=== PATIENT | male | born 1980 | race Caucasian/White ===

== ENCOUNTER 2021-11-02 21:51 | Inpatient (IN) ==
[2021-11-02] MEDS ORDERED: SODIUM CHLORIDE 0.9% 1000ML 1,000 ML IV STA (21:59)
[2021-11-02] MEDS ORDERED: SODIUM CHLORIDE 0.9% 1000ML 1,000 ML IV ONE (22:08)
--- NOTE | 2021-11-02 22:08 | Emergency Department Note ---
Impression & Plan Stroke-like symptoms ADMIT ED Provider Note HPI: The patient is a 41-year-old male who presents to the emergency department with a chief complaint of acute onset dizziness, states he had a ringing sensation in both of his ears bilaterally when he was drinking this evening at a local bar. Patient also states that for the past week he has had left-sided whole side num bness in the left upper extremity and left lower extremity, patient states he is also had some visual deficit in his left field of vision during this entire past week. On arrival to the ED the patient is very nauseous, he has had multiple episodes of vomiting. Denies any abdominal pain. He does display some ataxia in the left upper extremity on exam, he has symmetrical facial movements, he does not exhibit any focal motor deficits, he is hemodynamically stable on arrival. He states he had 2 beers prior to arrival. ROS: -Neuro: Left-sided numbness x1 week, left-sided visual deficit, acute onset dizziness *10 point review systems was conducted and is otherwise negative unless stated above *Outpatient medications and allergy history reviewed PE: General: Alert, NAD HEENT: Normocephalic, atraumatic Eyes: Extraocular eye movement is intact, no scleral erythema Pulmonary: Clear to auscultation bilaterally, no wheezing Cardio: Regular rate and rhythm GI: Abdomen is soft, nontender : No suprapubic tenderness MSK: No evidence of trauma or malformation of the extremities, no edema Skin: No evidence of rash Neuro: Alert, symmetrical facial movements are appreciated, equal bilateral anesthesiologist attending strength, ataxia on the left side with [id number] testing Psychiatric: Cooperative hall monitor: - An order was placed for continuous cardiac monitoring - Patient was noted to be in sinus rhythm with rate of 90 EKG: Rate: 87 Rhythm: Normal sinus rhythm Intervals: Within normal limits ST changes: No ST elevation Time: 2156 NIH STROKE SCALE: 1A: Level of consciousness Alert; keenly responsive 0 1B: Ask month and age Both questions right 0 1C: 'Blink eyes' & 'squeeze hands' Performs both tasks 0 2: Horizontal extraocular movements Normal 0 3: Visual zapien Partial hemianopia +1 4: Facial palsy Normal symmetry 0 5A: Left arm motor drift No drift for 10 seconds 0 5B: Right arm motor drift No drift for 10 seconds 0 6A: Left leg motor drift No drift for 5 seconds 0 6B: Right leg motor drift No drift for 5 seconds 0 7: Limb Ataxia Ataxia in 1 Limb +1 8: Sensation Mild-moderate loss: less sharp/more dull +1 9: Language/aphasia Normal; no aphasia 0 10: Dysarthria Normal 0 11: Extinction/inattention No abnormality 0 TOTAL NIH SCORE = 3 Medical Decision Making: Patient presented to the emergency department with a chief complaint of acute onset vertiginous symptoms, this is in the setting of pre-existing symptoms concerning for CVA including left-sided numbness and left-sided visual deficits for the past week. On arrival here to the ED the patient has had some nausea and vomiting, he is otherwise hemodynamically stable and alert. He does not show any focal motor deficits on exam. NIH stroke scale is calculated at 3 for ataxia, visual deficit, and sensory deficit on arrival. CT imaging of the head as well as CT angiography of the head and neck are unremarkable for stroke or large vessel occlusion. Patient was given Zofran and meclizine here in the ED as well as IV fluids. His lab work is suggestive of a metabolic acidosis in the setting of recent alcohol use, alcohol level is 52. Patient does admit to having several beers earlier today. According to bedside RN, they did attempt to ambulate the patient to the restroom and he was having severe difficulty with his balance. I do have concern that with his alcohol level not being markedly elevated in the setting of pre-existing neurologic symptoms he may have a posterior circulation stroke. His main risk factor is 1 pack/day smoking x25 years. He was ordered an aspirin in the ED, I discussed the above findings with the on-call hospitalist, Dr. Mercedes marshall, and the patient was accepted to a telemetry bed for MRI imaging later this morning and further management. Patient was in agreement to the above plan he was admitted in stable condition. Diagnosis: 1. Acute onset vertigo 2. Nausea and vomiting 3. Left-sided numbness of the upper extremity and lower extremity 4. Left-sided visual deficit 5. Stroke like symptoms Disposition: Admission Andrea Del Valle DO Emergency Medicine Past Med/Surg History Social History Smoking Status: Current every day smoker Tobacco Type: Cigarettes Preferred Language: Tongan Feels Safe at Home: Yes Allergies Allergies Allergy/AdvReac Type Severity Reaction Status Date / Time No Known Allergies Allergy Unverified 11/03/21 00:40 Home Meds Home Medications Medication Instructions Recorded Confirmed ibuprofen 200 mg tablet 400 mg PO Q6H PRN 11/03/21 11/03/21 Results & Data (ED) Vital Signs Vital Signs - 24 hr 11/02/21 21:56 11/02/21 21:57 11/02/21 23:30 Temperature 37 C Temperature Source Oral Pulse Rate 94 H 87 94 H Pulse Rate from SpO2 Sensor 88 92 H Pulse Rhythm Regular Pulse Strength Normal Respiratory Rate 24 29 H 19 Respiratory Effort / Characteristics Non-Labored Spontaneous Respiratory Depth Normal Respiratory Pattern Regular Blood Pressure 150/98 H 141/99 H Blood Pressure Mean 115 113 Blood Pressure Position Sitting Pulse Oximetry 98 97 Oxygen Delivery Method Room Air Sepsis Recent Fever Within 48 Hours No Sepsis New/Unexplained Change in Mental Status N/A Sepsis Action Taken by Nursing No Action Required Laboratory Data Result diagrams: 11/02/21 22:15 11/02/21 22:15 Lab Results 11/02/21 11/02/21 11/02/21 Range/Units 22:15 22:15 22:15 WBC 14.49 H (4.8-10.8) K/uL RBC 5.15 (4.7-6.1) M/uL Hgb 17.6 (14.0-18.0) g/dL Hct 48.6 (42-52) % MCV 94.4 (80-100) fL MCH 34.2 H (25-34) pg MCHC 36.2 H (32-36) g/dL RDW Std Deviation 43.7 (36.4-46.3) fL RDW Coeff of [place] 12.6 (11.5-14.5) % Plt Count 315 (130-400) K/uL MPV 9.5 (7.4-10.4) fL Immature Gran % (Auto) 0.4 % Neut % (Auto) 68.1 % Lymph % (Auto) 21.9 % [place] % (Auto) 8.6 % Eos % (Auto) 0.6 % Baso % (Auto) 0.4 % Neut # (Auto) 9.88 H (1.4-6.5) K/uL Lymph # (Auto) 3.17 (1.2-3.4) K/uL [place] # (Auto) 1.24 H (0.11-0.59) K/uL Eos # (Auto) 0.08 (0-0.5) K/uL Baso # (Auto) 0.06 (0-0.2) K/uL Immature Gran # (Auto) 0.06 H (0.00-0.02) K/uL Sodium 133 L (136-145) mmol/L Potassium 3.1 L (3.5-5.1) mmol/L Chloride 101 (98-107) mmol/L Carbon Dioxide 19 L (21-32) mmol/L Anion Gap 13 H (3-11) BUN 5 L (6-23) mg/dl Creatinine 0.78 (0.6-1.4) mg/dl Est Cr Clr Drug Dosing 141.7 ml/min Est GFR ( Amer) 128.1 ml/min Est GFR (Non-Af Amer) 110.6 ml/min BUN/Creatinine Ratio 6.4 L (10-20) Glucose 122 H (70-99(Fasting)) mg/dl Calcium 8.4 L (8.5-10.1) mg/dl Total Bilirubin 1.0 (0.2-1.0) mg/dl AST 16 (13-39) U/L ALT 19 (7-52) U/L Alkaline Phosphatase 53 (34-104) U/L Troponin I < 0.03 (0-0.04) ng/ml Total Protein 6.6 (6.0-8.3) gm/dl Albumin 4.0 (3.4-5.0) gm/dl Globulin 2.6 (2.5-4.0) gm/dl Albumin/Globulin Ratio 1.5 (0.9-2) Lipase 110 H (11-82) U/L Ethyl Alcohol mg/dL 52.1 H (<10.0) mg/dl Administered Medications Discontinued Medications Sodium Chloride (Nss 1000ml) 1,000 mls @ 999 mls/hr IV .Q1H1M STA Stop: 11/02/21 22:59 Last Infusion: 11/02/21 23:45 Dose: 0 mls/hr Documented by: [id number] Admin: 11/02/21 22:21 Dose: 999 mls/hr Documented by: [id number] Sodium Chloride (Nss 1000ml) 1,000 mls @ 999 mls/hr IV .Q1H1M ONE Stop: 11/02/21 23:08 Last Infusion: 11/02/21 23:45 Dose: 0 mls/hr Documented by: [id number] Admin: 11/02/21 22:20 Dose: 999 mls/hr Documented by: [id number] Ioversol (Optiray 320 125ml) 118 ml IV ONCE ONE Stop: 11/02/21 23:43 Last Admin: 11/02/21 23:42 Dose: 118 ml Documented by: [id number] Meclizine HCl (Meclizine Hcl 25 Mg Tab) 25 mg PO NOW STA Stop: 11/03/21 00:11 Last Admin: 11/03/21 00:54 Dose: 25 mg Documented by: [id number] Ondansetron HCl (Ondansetron Inj 2 Mg/Ml 2 Ml Vial) Confirm Administered Dose 4 mg .ROUTE .STK-MED ONE Stop: 11/02/21 22:19 Last Admin: 11/02/21 22:20 Dose: 4 mg Documented by: [id number] Ondansetron HCl (Ondansetron Inj 2 Mg/Ml 2 Ml Vial) 4 mg IV NOW STA Stop: 11/02/21 22:32 Last Admin: 11/02/21 22:32 Dose: Not Given Documented by: [id number] Potassium Chloride (Potassium Chloride Pwd 20 Meq Pack) 20 meq PO NOW STA Stop: 11/03/21 00:12 Last Admin: 11/03/21 00:54 Dose: 20 meq Documented by: [id number] Imaging Data Radiologist's Impression: Chest X-Ray 11/02/21 21:59 XR chest 1V portable HISTORY: Atypical Chest Pain COMPARISON: Chest 12/05/2013. FINDINGS: The lungs are clear. Cardiac silhouette is normal in size. No pleural effusions. No pneumothorax. IMPRESSION: No acute process. ACT 112: Negative or not required by law. Electronically signed by: William Montana M.D. 11/02/2021 10:[address] 11/02/21 21:59 CT head/brain wo con CLINICAL HISTORY: Dizzy . Left facial and arm numbness for one week COMPARISON STUDY: No previous studies for comparison. CT DOSE: TECHNIQUE: Standard CT of the Brain was performed without IV contrast. A dose lowering technique was utilized adhering to the principles of ALARA. FINDINGS: Extraaxial space: There is no evidence for subdural hematoma. There are no extra-axial fluid collections. Ventricles and cisterns: The ventricles are normal in size and configuration. There is no evidence for midline shift or mass effect. Parenchyma: There is no subarachnoid or intraparenchymal hemorrhage. There is no evidence for an acute infarct or cerebral edema. There is homogeneous attenuation of the brain parenchyma. There are no gross mass lesions. Osseous structures: There is no evidence for an acute fracture. The visualized paranasal sinuses are clear. The mastoid air cells are clear bilaterally. Soft tissues: There is no evidence for focal soft tissue swelling. IMPRESSION: No acute intracerebral pathology. ACT 112: Negative or not required by law. Electronically signed by: Thanh Gloria M.D. 11/02/2021 11:51 PM Head CTA 11/02/21 22:03 CT angio head w con CLINICAL HISTORY: L sided numbness x 1 week, L sided visual change COMPARISON STUDY: Noncontrast CT from 11/02/2021 CT DOSE: TECHNIQUE: CT Angio of the brain was performed.followed by image post processing with coronal, and sagittal MIP reformats. Contrast Volume: Optiray 320, 118 ml FINDINGS: Vascular findings: There is normal enhancement within the internal carotid arteries bilaterally. There is normal enhancement noted within the anterior, middle and posterior cerebral arteries. Nonvascular findings: There is homogeneous attenuation of the brain parenchyma bilaterally. There is no evidence for an acute infarct or cerebral edema. IMPRESSION: Negative CT angiogram of the brain with contrast. ACT 112: Negative or not required by law. Electronically signed by: Thanh Gloria M.D. 11/02/2021 11:59 PM Neck CTA 11/02/21 22:03 CT angio neck with con CLINICAL HISTORY: L sided weakness, L sided visual change COMPARISON STUDY: No previous studies for comparison. CT DOSE: 1008.25 mGy.cm TECHNIQUE: CT Angio of the neck was performed.followed by image post processing with coronal, and sagittal MIP reformats.. Stenosis assessment by NASCET criteria. Contrast Volume: Optiray 320, 118 ml FINDINGS: Vascular findings: Right common carotid artery: Patent without significant stenosis. Right internal carotid artery: Patent without significant stenosis. Right vertebral artery: Patent without significant stenosis. The right vertebral artery is dominant when compared to the left. Left common carotid artery: Patent without significant stenosis. Left internal carotid artery: Patent without significant stenosis. Left vertebral artery: Patent without significant stenosis. Nonvascular findings: The parotid and submandibular salivary glands appear normal. There is no enlarged cervical adenopathy noted. The airway appears patent. The thyroid gland appears within normal limits. The lung apices appear within normal limits. Impression: Negative CT angiogram of the neck with contrast. ACT 112: Negative or not required by law. Electronically signed by: Thanh Gloria M.D. 11/03/2021 12:14 AM Discharge Plan Visit Data Chief Complaint: Vertigo Stated Complaint: DIZZY ED Provider: Andrea Del Valle Discharge Problem: Stroke-like symptoms Forms Stand Alone Forms: [facility] [employer] Prescriptions Prescriptions: No Action ibuprofen 200 mg Tablet 400 mg PO Q6H PRN (Reason: Pain) RF: 0 Referrals Referrals: PCP,NO [Primary Care Provider] -
[2021-11-02] MEDS ORDERED: ONDANSETRON INJ 2 MG/ML 2 ML VIAL ONE (22:18)
[2021-11-02 22:24] LABS: Basophils # (auto) 0.06 K/uL (0-0.2); Basophils % (auto) 0.4 %; Eosinophils # (auto) 0.08 K/uL (0-0.5); Eosinophils % (auto) 0.6 %; Hematocrit (blood only) 48.6 % (42-52); Hemoglobin 17.6 g/dL (14.0-18.0); Immature Granulocytes # (auto) 0.06 K/uL (0.00-0.02); Immature Granulocytes % (auto) 0.4 %; Lymphocytes # (auto) 3.17 K/uL (1.2-3.4); Lymphocytes % (auto) 21.9 %; Mean Corpuscular Hemoglobin 34.2 pg (25-34); Mean Corpuscular Hgb Conc 36.2 g/dL (32-36); Mean Corpuscular Volume 94.4 fL (80-100); Mean Platelet Volume 9.5 fL (7.4-10.4); Monocytes # (auto) 1.24 K/uL (0.11-0.59); Monocytes % (auto) 8.6 %; Neutrophils # (auto) 9.88 K/uL (1.4-6.5); Neutrophils % (auto) 68.1 %; Platelet Count 315 K/uL (130-400); RDW Coefficient of Variation 12.6 % (11.5-14.5); RDW Standard Deviation 43.7 fL (36.4-46.3); Red Blood Count 5.15 M/uL (4.7-6.1); White Blood Count 14.49 K/uL (4.8-10.8)
[2021-11-02] MEDS ORDERED: ONDANSETRON INJ 2 MG/ML 2 ML VIAL IV STA (22:31)
--- NOTE | 2021-11-02 22:43 | XRay Report ---
XR chest 1V portable HISTORY: Atypical Chest Pain COMPARISON: Chest 12/05/2013. FINDINGS: The lungs are clear. Cardiac silhouette is normal in size. No pleural effusions. No pneumot horax. IMPRESSION: No acute process. ACT 112: Negative or not required by law. Electronically signed by: William Montana M.D. 11/02/2021 10:42 PM
[2021-11-02 22:50] LABS: Alanine Aminotransferase 19 U/L (7-52); Albumin Globulin Ratio 1.5 (0.9-2); Alkaline Phosphatase 53 U/L (34-104); Anion Gap 13 (3-11); Aspartate Aminotransferase 16 U/L (13-39); BUN Creatinine Ratio 6.4 (10-20); Blood Urea Nitrogen 5 mg/dl (6-23); Calcium 8.4 mg/dl (8.5-10.1); Carbon Dioxide 19 mmol/L (21-32); Chloride 101 mmol/L (98-107); Creatinine Clr Calc Pharmacy 141.7 ml/min; Est GFR (African American) 128.1 ml/min; Est GFR (Non-African American) 110.6 ml/min; Globulin 2.6 gm/dl (2.5-4.0); Glucose 122 mg/dl (70-99(Fasting)); Lipase 110 U/L (11-82); Potassium 3.1 mmol/L (3.5-5.1); Sodium 133 mmol/L (136-145); Total Protein 6.6 gm/dl (6.0-8.3)
[2021-11-02 22:51] LABS: Troponin I < 0.03 ng/ml (0-0.04)
[2021-11-02] MEDS ORDERED: OPTIRAY 320 125ml IV ONE (23:42)
--- NOTE | 2021-11-02 23:52 | CT Scan Report ---
CT head/brain wo con CLINICAL HISTORY: Dizzy . Left facial and arm numbness for one week COMPARISON STUDY: No previous studies for comparison. CT DOSE: TECHNIQUE: Standard CT of the Brain was performed without IV contrast. A dose lowering technique was utilized adhering to the principles of ALARA. FINDINGS: Extraaxial space: There is no evidence for subdural hematoma. There are no extra-axial fluid collecti ons. Ventricles and cisterns: The ventricles are normal in size and configuration. There is no evidence f or midline shift or mass effect. Parenchyma: There is no subarachnoid or intraparenchymal hemorrhage. There is no evidence for an acu te infarct or cerebral edema. There is homogeneous attenuation of the brain parenchyma. There are no gross mass lesions. Osseous structures: There is no evidence for an acute fracture. The visualized paranasal sinuses are clear. The mastoid air cells are clear bilaterally. Soft tissues: There is no evidence for focal soft tissue swelling. IMPRESSION: No acute intracerebral pathology. ACT 112: Negative or not required by law. Electronically signed by: Thanh Gloria M.D. 11/02/2021 11:51 PM
--- NOTE | 2021-11-03 | CT Scan Report ---
CT angio head w con CLINICAL HISTORY: L sided numbness x 1 week, L sided visual change COMPARISON STUDY: Noncontrast CT from 11/02/2021 CT DOSE: TECHNIQUE: CT Angio of the brain was performed.followed by image post processing with coronal, and s agittal MIP reformats. Contrast Volume: Optiray 320, 118 ml FINDINGS: Vascular findings: There is normal enhancement within the internal carotid arteries bilaterally. The re is normal enhancement noted within the anterior, middle and posterior cerebral arteries. Nonvascular findings: There is homogeneous attenuation of the brain parenchyma bilaterally. There is no evidence for an acute infarct or cerebral edema. IMPRESSION: Negative CT angiogram of the brain with contrast. ACT 112: Negative or not required by law. Electronically signed by: Thanh Gloria M.D. 11/02/2021 11:59 PM
[2021-11-03] MEDS ORDERED: MECLIZINE HCL 25 MG TAB PO STA (00:10)
[2021-11-03] MEDS ORDERED: POTASSIUM CHLORIDE PWD 20 MEQ PACK PO STA (00:11)
--- NOTE | 2021-11-03 00:16 | CT Scan Report ---
CT angio neck with con CLINICAL HISTORY: L sided weakness, L sided visual change COMPARISON STUDY: No previous studies for comparison. CT DOSE: 1008.25 mGy.cm TECHNIQUE: CT Angio of the neck was performed.followed by image post processing with coronal, and sa gittal MIP reformats.. Stenosis assessment by NASCET criteria. Contrast Volume: Optiray 320, 118 ml FINDINGS: Vascular findings: Right common carotid artery: Patent without significant stenosis. Right internal carotid artery: Patent without significant stenosis. Right vertebral artery: Patent without significant stenosis. The right vertebral artery is dominant w hen compared to the left. Left common carotid artery: Patent without significant stenosis. Left internal carotid artery: Patent without significant stenosis. Left vertebral artery: Patent without significant stenosis. Nonvascular findings: The parotid and submandibular salivary glands appear normal. There is no enlarged cervical adenopathy noted. The airway appears patent. The thyroid gland appears within normal limits. The lung apices ap pear within normal limits. Impression: Negative CT angiogram of the neck with contrast. ACT 112: Negative or not required by law. Electronically signed by: Thanh Gloria M.D. 11/03/2021 12:14 AM
[2021-11-03] MEDS ORDERED: ASPIRIN CHEW 324 MG PO STA (00:55)
[2021-11-03] MEDS ORDERED: POTASSIUM CHLORIDE CRTAB 20 MEQ TABCR PO STA (01:44)
--- NOTE | 2021-11-03 01:47 | History & Physical Report ---
Date of Service November 03, 2021 Assessment & Plan (1) Stroke-like symptoms: Plan: 41yo male with history of ongoing tobacco use, absent from routine medical care, presents with stroke-like symptoms. Began appx 1 week ago with a posterior headache associated with left sided paresthesias and left lateral visual field deficit. Symptoms seem to have progressed this evening with development of tinnitus, vertigo and ataxia. Patient smokes 1ppd. No prior CVA. No know h/o arrhythmia Received ASA 324mg po in ER. Patient is out of the window for thrombolytics - symptoms x 1 week -Admit to medical with telemetry -Check HgbA1C and Lipid panel for CVA risk stratification -Check MRI Brain -Check 2D echo -PT/OT evaluation -Neurology consultation appreciated -Will initiate Atorvastatin 40mg po daily -Initiate ASA 81mg po daily -Encourage smoking cessation (2) History of Lyme disease: Plan: Patient reports history of a tick bite many years ago with development of several rashes. He states he completed a course of Doxycycline. -Noted Plan: F/E/N - Heplock, Check Mg, repletion of K with 60mEq and repeat chemistry in AM, Heart healthy diet as tolerated Daily EtOH use - reports 2-3 beers/day. No history of withdrawal symptoms. Will place AWSS orderset for at risk patient. Ppx -SCDs to bilateral LE Code - Full per discussion with patient Dispo - observation to medical with telemetry History of Present Illness Chief Complaint: dizziness Primary Care Provider: NO PCP Terrance Hunter is a 41yo male with history of tobacco use presenting with dizziness. One week ago patient developed a migraine headache in the right posterior portion of his head as well as left sided numbness of the arm and leg and deficit of the left lateral visual field. Patient's headache resolved but the numbness/tingling and visual field deficit persist. Today he went grocery shopping then went out to a social club to have some drinks. He had two beers when he developed acute tinnitus and dizziness. He set his beer down and rested for appx 15-20 minutes to see if the dizziness would resolve. When it didn't he tried to walk to the bathroom. He became nauseated and had difficulty with balance and coordination. He had several episodes of non-bloody/non-bilious vomiting. Upon arrival he is afebrile, mildly elevated BP at 141/99, saturating well on RA. NIHSS = 3 Patient still complaining of dizziness worsened with movement. Was walked to the bathroom in the ER with significant ataxia No additional complaints at this time. Patient denies fever, chills, cough, chest pain, SOB. Denies abdominal pain, diarrhea. He is not vaccinated against Covid-19 He smokes 1ppd and drinks 2-3 beers/day. Denies history of EtOH withdrawal symptoms. ER Course: NSS x 2L, Zofran, Meclizine Allergies Allergy/AdvReac Type Severity Reaction Status Date / Time No Known Allergies Allergy Unverified 11/03/21 00:40 Home Medications Medication Instructions Recorded Confirmed Type ibuprofen 200 mg tablet 400 mg PO Q6H PRN 11/03/21 11/03/21 History Past Med/Surg History Medical History (Updated 11/03/21 @ 01:33 by Arely Lombardo DO) Migraine Family History (Updated 11/03/21 @ 01:33 by Arely Lombardo DO) Other Cancer Coronary heart disease Social History Smoking Status: Current every day smoker Tobacco Type: Cigarettes Preferred Language: Icelandic Feels Safe at Home: Yes Review of Systems Review of Systems: All systems reviewed & are unremarkable except as noted in HPI & below Physical Exam Physical Exam: General: patient resting comfortably, NAD, non-toxic in appearance, AA&O x 4 Skin: warm, dry, intact, scattered lesions on forearm, no bleeding or evidence of secondary infection HEENT: NC/AT, PERRL, EOMI, anicteric sclera, conjunctiva without injection, external ear normal to inspection and nontender, nares patent, moist mucus membranes, edentulous, no oropharyngeal lesions, neck supple, trachea midline, no LAD, no thyromegaly, no JVD Heart: +S1/S2, regular, no m/r/g, no carotid bruit appreciated Lungs: equal air entry bilaterally, no rales/rhonchi/wheezes Abd: +BS, soft, NT/ND, no masses/organomegaly/ascites Ext: warm, 2+ pulses in UE/LE bilaterally, no clubbing/cyanosis or edema Neuro: AA&O x 4, speech clear, no facial droop. CN II - XII intact with left lateral visual field deficit appreciated on confrontation, sensation to light touch reportedly intact and equal, MS 5/5 in UE/LE bilaterally, some dysmetria noted on finger to nose with bilateral hands, gait as assessed by ER nursing reported to be ataxic with assistance required for ambulation Results & Data Results & Data ([facility]) Vital Signs (Past 12 Hours) Vital Signs Temp Pulse Resp BP Pulse Ox 11/03/21 01:00 98 H 18 141/99 H 96 11/03/21 00:30 90 18 95 11/03/21 00:00 95 H 17 96 11/02/21 23:30 94 H 19 141/99 H 97 11/02/21 21:57 37 C 87 29 H 150/98 H 98 11/02/21 21:56 94 H 24 Laboratory Results Laboratory Results WBC 14.49 K/uL (4.8-10.8) H 11/02/21 22:15 RBC 5.15 M/uL (4.7-6.1) 11/02/21 22:15 Hgb 17.6 g/dL (14.0-18.0) 11/02/21 22:15 Hct 48.6 % (42-52) 11/02/21 22:15 MCV 94.4 fL (80-100) 11/02/21 22:15 MCH 34.2 pg (25-34) H 11/02/21 22:15 MCHC 36.2 g/dL (32-36) H 11/02/21 22:15 RDW Std Deviation 43.7 fL (36.4-46.3) 11/02/21 22:15 RDW Coeff of Flora 12.6 % (11.5-14.5) 11/02/21 22:15 Plt Count 315 K/uL (130-400) 11/02/21 22:15 MPV 9.5 fL (7.4-10.4) 11/02/21 22:15 Immature Gran % (Auto) 0.4 % 11/02/21 22:15 Neut % (Auto) 68.1 % 11/02/21 22:15 Lymph % (Auto) 21.9 % 11/02/21 22:15 Mower % (Auto) 8.6 % 11/02/21 22:15 Eos % (Auto) 0.6 % 11/02/21 22:15 Baso % (Auto) 0.4 % 11/02/21 22:15 Neut # (Auto) 9.88 K/uL (1.4-6.5) H 11/02/21 22:15 Lymph # (Auto) 3.17 K/uL (1.2-3.4) 11/02/21 22:15 Mower # (Auto) 1.24 K/uL (0.11-0.59) H 11/02/21 22:15 Eos # (Auto) 0.08 K/uL (0-0.5) 11/02/21 22:15 Baso # (Auto) 0.06 K/uL (0-0.2) 11/02/21 22:15 Immature Gran # (Auto) 0.06 K/uL (0.00-0.02) H 11/02/21 22:15 Sodium 133 mmol/L (136-145) L 11/02/21 22:15 Potassium 3.1 mmol/L (3.5-5.1) L 11/02/21 22:15 Chloride 101 mmol/L (98-107) 11/02/21 22:15 Carbon Dioxide 19 mmol/L (21-32) L 11/02/21 22:15 Anion Gap 13 (3-11) H 11/02/21 22:15 BUN 5 mg/dl (6-23) L 11/02/21 22:15 Creatinine 0.78 mg/dl (0.6-1.4) 11/02/21 22:15 Est Cr Clr Drug Dosing 141.7 ml/min 11/02/21 22:15 Est GFR ( Amer) 128.1 ml/min 11/02/21 22:15 Est GFR (Non-Af Amer) 110.6 ml/min 11/02/21 22:15 BUN/Creatinine Ratio 6.4 (10-20) L 11/02/21 22:15 Glucose 122 mg/dl (70-99(Fasting)) H 11/02/21 22:15 Calcium 8.4 mg/dl (8.5-10.1) L 11/02/21 22:15 Total Bilirubin 1.0 mg/dl (0.2-1.0) 11/02/21 22:15 AST 16 U/L (13-39) 11/02/21 22:15 ALT 19 U/L (7-52) 11/02/21 22:15 Alkaline Phosphatase 53 U/L (34-104) 11/02/21 22:15 Troponin I < 0.03 ng/ml (0-0.04) 11/02/21 22:15 Total Protein 6.6 gm/dl (6.0-8.3) 11/02/21 22:15 Albumin 4.0 gm/dl (3.4-5.0) 11/02/21 22:15 Globulin 2.6 gm/dl (2.5-4.0) 11/02/21 22:15 Albumin/Globulin Ratio 1.5 (0.9-2) 11/02/21 22:15 Lipase 110 U/L (11-82) H 11/02/21 22:15 Ethyl Alcohol mg/dL 52.1 mg/dl (<10.0) H 11/02/21 22:15 SARS-CoV-2, RNA, NAAT NEGATIVE (NEGATIVE) 11/03/21 01:02 Impressions Chest X-Ray 11/02/21 21:59 XR chest 1V portable HISTORY: Atypical Chest Pain COMPARISON: Chest 12/05/2013. FINDINGS: The lungs are clear. Cardiac silhouette is normal in size. No pleural effusions. No pneumothorax. IMPRESSION: No acute process. ACT 112: Negative or not required by law. Electronically signed by: William Montana M.D. 11/02/2021 10:[address] 11/02/21 21:59 CT head/brain wo con CLINICAL HISTORY: Dizzy . Left facial and arm numbness for one week COMPARISON STUDY: No previous studies for comparison. CT DOSE: TECHNIQUE: Standard CT of the Brain was performed without IV contrast. A dose lowering technique was utilized adhering to the principles of ALARA. FINDINGS: Extraaxial space: There is no evidence for subdural hematoma. There are no extra-axial fluid collections. Ventricles and cisterns: The ventricles are normal in size and configuration. There is no evidence for midline shift or mass effect. Parenchyma: There is no subarachnoid or intraparenchymal hemorrhage. There is no evidence for an acute infarct or cerebral edema. There is homogeneous attenuation of the brain parenchyma. There are no gross mass lesions. Osseous structures: There is no evidence for an acute fracture. The visualized paranasal sinuses are clear. The mastoid air cells are clear bilaterally. Soft tissues: There is no evidence for focal soft tissue swelling. IMPRESSION: No acute intracerebral pathology. ACT 112: Negative or not required by law. Electronically signed by: Thanh Gloria M.D. 11/02/2021 11:51 PM Head CTA 11/02/21 22:03 CT angio head w con CLINICAL HISTORY: L sided numbness x 1 week, L sided visual change COMPARISON STUDY: Noncontrast CT from 11/02/2021 CT DOSE: TECHNIQUE: CT Angio of the brain was performed.followed by image post processing with coronal, and sagittal MIP reformats. Contrast Volume: Optiray 320, 118 ml FINDINGS: Vascular findings: There is normal enhancement within the internal carotid arteries bilaterally. There is normal enhancement noted within the anterior, middle and posterior cerebral arteries. Nonvascular findings: There is homogeneous attenuation of the brain parenchyma bilaterally. There is no evidence for an acute infarct or cerebral edema. IMPRESSION: Negative CT angiogram of the brain with contrast. ACT 112: Negative or not required by law. Electronically signed by: Thanh Gloria M.D. 11/02/2021 11:59 PM Neck CTA 11/02/21 22:03 CT angio neck with con CLINICAL HISTORY: L sided weakness, L sided visual change COMPARISON STUDY: No previous studies for comparison. CT DOSE: 1008.25 mGy.cm TECHNIQUE: CT Angio of the neck was performed.followed by image post processing with coronal, and sagittal MIP reformats.. Stenosis assessment by NASCET criteria. Contrast Volume: Optiray 320, 118 ml FINDINGS: Vascular findings: Right common carotid artery: Patent without significant stenosis. Right internal carotid artery: Patent without significant stenosis. Right vertebral artery: Patent without significant stenosis. The right vertebral artery is dominant when compared to the left. Left common carotid artery: Patent without significant stenosis. Left internal carotid artery: Patent without significant stenosis. Left vertebral artery: Patent without significant stenosis. Nonvascular findings: The parotid and submandibular salivary glands appear normal. There is no enlarged cervical adenopathy noted. The airway appears patent. The thyroid gland appears within normal limits. The lung apices appear within normal limits. Impression: Negative CT angiogram of the neck with contrast. ACT 112: Negative or not required by law. Electronically signed by: Thanh Gloria M.D. 11/03/2021 12:14 AM ECG Additional Comments: EKG with NSR at 87, normal axis, HR=444, QRS=88, TOt=163 Code Status & VTE Plan VTE Prophylaxis Plan VTE Prophylaxis will be ordered: Yes PG Care Time/CCT Total # of Minutes Spent Total Time Spent with Patient: Total time spent is greater than 50% in coordination of care (as documented) at patient's floor/unit and/or counseling patient: Coding Level of Care Code INT OBSERVATION CARE 50M LVL 2 Diagnoses Stroke-like symptoms R29.90 History of Lyme disease Z86.19
[2021-11-03] MEDS ORDERED: ACETAMINOPHEN 325 MG TAB PO PRN (06:38)
[2021-11-03] MEDS ORDERED: ONDANSETRON INJ 2 MG/ML 2 ML VIAL IV PRN (06:38)
[2021-11-03] MEDS ORDERED: MECLIZINE HCL 25 MG TAB PO PRN (06:38)
[2021-11-03] MEDS ORDERED: LORazepam 1 MG TAB PO PRN (06:38)
[2021-11-03] MEDS: ASPIRIN 81 MG ECTAB PO SCH (09:53)
[2021-11-03] MEDS: ATORVASTATIN 40 MG TAB PO SCH (09:53)
[2021-11-03] MEDS ORDERED: GADOBUTROL 10ML VIAL IV ONE (11:21)
--- NOTE | 2021-11-03 12:24 | Magnetic Resonance Report ---
MR brain wo/w con CLINICAL HISTORY: concern for posterior CVA TECHNIQUE: Multiplanar and multisequence MR images of the brain were obtained prior to and following administration of gadolinium contrast. Comparison: None available at the time of this dictation. FINDINGS: Multiple foci of restricted diffusion are seen in the right occipital and temporal lobes. Foci of res tricted diffusion are also seen in the right cerebellum. There is associated edema and contrast enhan cement. Enhancement is also seen in a tiny region of the left occipital lobe.. Foci of T2 and FLAIR h yperintensity are noted in the paraventricular areas consistent with chronic small vessel ischemic di sease. The ventricular system is normal in appearance. There is no evidence of acute intraparenchymal hemorrhage. No extra axial fluid collections are seen. There are no masses, mass effect, or midline shift. No abnormal enhancement is seen. The corpus callosum, pituitary gland, and cerebellar tonsils appear grossly unremarkable. Flow voids of the major intracranial arterial vessels are identified. The imaged portions of the para nasal sinuses, mastoid air cells, and orbits are unremarkable. IMPRESSION: Restricted diffusion, edema, and enhancement are seen in the right occipital lobe and cerebellum comp atible with infarcts in the right posterior cerebral artery and AICA. There may also be a tiny infarc t in the left occipital lobe. This may represent multivessel infarct or more likely posterior circula tion emboli. ACT 112: Negative or not required by law. Electronically signed by: Hola Alexander M.D. 11/03/2021 12:22 PM
--- NOTE | 2021-11-03 12:45 | Hospitalist Progress Note ---
Date of Service November 03, 2021 Assessment & Plan (1) Stroke-like symptoms: Plan: 41yo male with history of ongoing tobacco use, absent from routine medical care, presents with stroke-like symptoms. Began appx 1 week ago with a posterior headache associated with left sided paresthesias and left lateral visual field deficit. Symptoms seem to have progressed this evening with development of tinnitus, vertigo and ataxia. Patient smokes 1ppd. No prior CVA. No know h/o arrhythmia Acute CVA Restricted diffusion, edema, and enhancement are seen in the right occipital lobe and cerebellum compatible with infarcts in the right posterior cerebral artery and AICA. There may also be a tiny infarct in the left occipital lobe. This may represent multivessel infarct or more likely posterior circulation emboli. Patient did not receive TPA, out of window for thrombolytics as had some symptoms for up to a week Received aspirin full dose in ER Continued on low-dose aspirin, atorvastatin No history of A. fib, no irregular rhythm appreciated on monitor. Remains on telemetry. EKG NSR. ?outpt holter monitor TTE pending PT/OT pending Neuro consult pending Repeat CT in 24 hours, continue permissive hypertension at this time non-TPA goal blood pressure less than 220/110 then gradually decrease Discussed tobacco cessation, patient agreeable to this and expresses understanding of its effect on his stroke risk A1c, fasting lipid panel remains pending - CTA head/neck: naf (2) History of Lyme disease: Plan: Patient reports history of a tick bite many years ago with development of several rashes. He states he completed a course of Doxycycline. -Noted (3) Tobacco abuse: Plan: 1 to 1.5 pack/day use Discussed impact on stroke risk, patient expresses understanding of this Agreeable to quit, defers an NRT at this Should have close outpatient follow-up for this, patient does not have insurance at this time (4) Alcohol abuse: Plan: Reports 2-3, sometimes 4 beers per day. To sequential alcohol free days as early as last week, no history of tremors/withdrawal/DT At risk protocol Replete thiamine/folic acid ? If this could contribute to underlying atrial irritability/A. fib, although this is not been seen on monitor here Plan: F/E/N -Heart healthy diet as tolerated. Daily EtOH use - reports 2-3 beers/day. No history of withdrawal symptoms. At risk AWSS orderset, defer active protocol at this time. Will replete thiamine/folic acid Ppx -SCDs to bilateral LE Code - Full per discussion with patient Dispo -medical with telemetry Admission and Anticipated Discharge Date Admission Date: November 03, 2021 Rizwan Carlos is seen at the bedside. He reports he continues to feel about the same as yesterday. He has persistent jcki-iud-madeeny-like feeling in his left face, left arm, and left leg which does not affect his sensation to soft touch. No abnormalities of right side. He continues to have a left-sided hemianopsia. Pupils are equally reactive to light and accommodation. MRI shows restricted di ffusion and edema within the right occipital lobe, cerebellum compatible with infarcts in the right posterior cerebral artery and AICA,? Left occipital infarct.? Posterior circulation emboli versus multivessel infarct. Patient does not have a history of A. fib, denies any history of palpitations, irregular pulse. Does drink alcohol regularly, 4-5 drinks a night although has gone 23 nights without alcohol as early as last week and has never experienced tremors or withdrawal symptoms. Continued dizziness, somewhat improved. Migraine complete resolved just prior to onset of new sx. Review of Systems Review of Systems: All systems reviewed & are unremarkable except as noted in Subjective Physical Exam Physical Exam: General: A&Ox3. NAD. Cooperative. HEENT: Atraumatic, normocephalic. Left hemianopsia. Pulm: CTAB A&P. -wheezes, -rales, -rhonchi. Symmetrical chest rise. No increased work of breathing. No respiratory distress. Cardiac: RRR, -mrg. Radial pulses intact and symmetrical. Abdominal: Nontender, nondistended, soft. BS present. CRANIAL NERVES: II: Pupils equal and reactive, no relative afferent pupillary defect, no VF cuts III, IV, : EOM intact, tracking stops about 20 degrees left of midline otherwise no gaze preference or deviation, no nystagmus. V: normal sensation to soft touch in V1, V2, and V3 segments bilaterally, although patient does endorse ijwu-hou-trlosan feeling in left face, upper and l ower extremities VII: no asymmetry, no nasolabial fold flattening VIII: normal hearing to speech IX, X: normal palatal elevation, no uvular deviation XI: 5/5 head turn and 5/5 shoulder shrug bilaterally XII: midline tongue protrusion MOTOR: RUE: 5/5 Shoulder internal rotation, external rotation, flexion, extension, abduction, adduction 5/5 Elbow flexion/extension, wrist flexion/extension 5/5 sand mill grinder strength, finger flexion/extension, interosseus LUE: 5/5 Shoulder internal rotation, external rotation, flexion, extension, abduction, adduction 5/5 Elbow flexion/extension, wrist flexion/extension 5/5 sand mill grinder strength, finger flexion/extension, interosseus RLE: 5/5 to hip flexion/extension, knee flexion/extension, ankle dorsiflexion/plantarflexion LLE: 5/5 to hip flexion/extension, knee flexion/extension, ankle dorsiflexion/plantarflexion SENSORY: Intact in upper and lower extremities to soft touch without deficit, although superimposed tingling feeling in left upper and left lower extremity which does not diminishes ability to feel soft touch or temperature. COORD: Normal finger to nose and heel to post, no tremor, trace dysmetria Results & Data Results & Data ([facility]) Vital Signs (Past 12 Hours) Vital Signs Pulse Pulse Resp BP BP BP Pulse Ox 11/03/21 09:56 93 H 20 157/103 H 97 11/03/21 09:55 96 H 20 157/103 H 97 11/03/21 06:39 18 146/100 H 96 11/03/21 05:00 91 H 17 123/100 97 11/03/21 04:30 96 H 18 119/95 95 11/03/21 04:22 100 H 18 135/99 96 11/03/21 04:21 101 H 17 134/103 H 97 11/03/21 04:20 103 H 23 143/107 H 95 11/03/21 04:00 95 H 25 H 95 11/03/21 03:30 101 H 13 96 11/03/21 03:00 100 H 17 97 11/03/21 02:30 96 H 24 95 11/03/21 02:00 94 H 21 136/95 94 11/03/21 01:30 90 22 95 11/03/21 01:00 98 H 18 141/99 H 96 PG Care Time/CCT Total # of Minutes Spent Total Time Spent with Patient: Total time spent is greater than 50% in coordination of care (as documented) at patient's floor/unit and/or counseling patient: Coding Level of Care Code 18000 Subseq Hosp Care Lvl 3 Diagnoses Stroke-like symptoms R29.90 History of Lyme disease Z86.19 Tobacco abuse Z72.0 Alcohol abuse F10.10
--- NOTE | 2021-11-03 13:05 | XCELERA ---
[id number]
[2021-11-04] MEDS: ASPIRIN 81 MG ECTAB PO SCH (07:53)
[2021-11-04] MEDS: THIAMINE HCL 100 MG in SYRINGE 9 ML IV SCH (07:53)
[2021-11-04] MEDS: ATORVASTATIN 40 MG TAB PO SCH (07:54)
[2021-11-04] MEDS: FOLIC ACID 1 MG TAB PO SCH (07:54)
[2021-11-04 08:15] LABS: Basophils # (auto) 0.03 K/uL (0-0.2); Basophils % (auto) 0.4 %; Eosinophils # (auto) 0.08 K/uL (0-0.5); Hematocrit (blood only) 52.4 % (42-52); Hemoglobin 17.9 g/dL (14.0-18.0); Immature Granulocytes # (auto) 0.02 K/uL (0.00-0.02); Immature Granulocytes % (auto) 0.2 %; Lymphocytes # (auto) 2.93 K/uL (1.2-3.4); Lymphocytes % (auto) 35.6 %; Mean Corpuscular Hemoglobin 32.7 pg (25-34); Mean Corpuscular Hgb Conc 34.2 g/dL (32-36); Mean Corpuscular Volume 95.8 fL (80-100); Mean Platelet Volume 9.7 fL (7.4-10.4); Monocytes # (auto) 0.97 K/uL (0.11-0.59); Monocytes % (auto) 11.8 %; Platelet Count 333 K/uL (130-400); RDW Coefficient of Variation 13.1 % (11.5-14.5); RDW Standard Deviation 45.8 fL (36.4-46.3); Red Blood Count 5.47 M/uL (4.7-6.1); White Blood Count 8.23 K/uL (4.8-10.8)
[2021-11-04 08:37] LABS: BUN Creatinine Ratio 10.8 (10-20); Calcium 9.1 mg/dl (8.5-10.1); Creatinine Clr Calc Pharmacy 133.1 ml/min; Est GFR (African American) 124.9 ml/min; Est GFR (Non-African American) 107.8 ml/min; Potassium 3.7 mmol/L (3.5-5.1)
--- NOTE | 2021-11-04 09:34 | Neurology Consultation ---
Date of Consultation November 04, 2021 Assessment & Plan (1) Acute CVA (cerebrovascular accident): (2) Vertebral artery dissection: (3) Left homonymous hemianopsia due to recent cerebral infarction: (4) Numbness and tingling in left arm: (5) Hypertension: (6) Essential tremor: This patient has suffered 2 separate stroke events (all small strokes in size). First, I believe, two weeks ago in the right posterior cerebral artery distribution, creating some left-sided dysesthesias and mild left homonymous hemianopsia. secondly, he had another stroke of the small nature in the right cerebellum on November 02, resulting in vertigo, abnormal gait, and tinnitus. He has improved from all the symptoms prior to admission but still has some dysesthesias and left sided vision problems. The etiology of these strokes is likely vertebral artery dissection. This was noted on CT angiography and there is thrombus present. patient has stroke risk factors for small vessel ischemic disease including heavy cigarette smoking of the longstanding nature, hypertension, and heavy alcohol use. echocardiogram showed no source of thrombus. He does not have diabetes and his hemoglobin A1c was 5.3. The patient has an essential tremor on exam which is likely long-standing and may be familial. Patient is a heavy alcohol user and he may have an early pancreatitis as noted by the elevated lipase. He does not have any abdominal symptoms, however. Recommendations: 1. Discontinue cigarette use. 2. Discontinue alcohol use. 3. Control blood pressure as you are doing, aiming for a mean arterial pressure of 95-100. 4. Patient has elevated total cholesterol and triglycerides. He would be a high dose statin candidate. 5. the treatment of vertebral artery dissection with stroke is debated and there is no significant difference between antiplatelet versus anticoagulant therapy, most times. Given his time course and clinical stability /improvement, I suggest dual platelet therapy with 75 mg clopidogrel and 81 mg aspirin daily for 3 weeks, followed by 81 milligram aspirin tablet daily alone. 6. Increase activity as able, and physical an occupational therapy consult. 7. He has not had any alcohol withdrawal symptoms since admission, but this needs to be monitored. 8. Consider B12, folate, and TSH. 9. this patient needs a primary care physician 10. the essential tremor is mild and does not need any specific treatment at this time. However, if treatment was considered, I would opt to initiate propranolol ER 60 milligrams a day to treat hypertension, tremor, and prevent migraines. Overall, I spent a total of 120 minutes with this case including review of garland rds, review of CT and MRI films, direct evaluation patient at bedside, and discussion of the case with the patient in an RN at bedside, and Dr. Meeks, including differential diagnosis and treatment options. History of Present Illness Reason for Consultation: Patient is a 41-year-old, who I was asked to see at the request of Dr. Wynn, for neurologic consultation regarding stroke Requesting Physician: Dr. Wynn Attending Physician: Gordo Meeks MD History of Present Illness this patient has a history of significant cigarette had alcohol usage for many years. He has been smoking 1-1/2 packs cigarettes per day for at least 20 years, and states that he drinks 4-5 beers per night most nights. He had history of Lyme disease treated with doxycycline 2002 and will have a migraine headache event about once a year taking [id number] medications. He has no history of heart disease, hypertension, diabetes, or stroke. Sometime in late September/early October he had the onset of trouble focusing and decreased ability to see off to the left, which persisted. He had no headache. 3-4 days later he noted the onset of left-sided dysesthesias and numbness including face, arm, leg, and the side of his body. He denied any weakness. He was not having balance problems at that time. All of these symptoms were staying about the same although he had some improvement of the numbness and dysesthesias on the left body. In the evening of November 02, he was at the bar having "a couple of beers" when he had the sudden onset of dizziness. This was vertigo and his balance was poor. He had ringing in both ears and had nausea. He managed to stagger to the bathroom and ended up Vomiting. He arrived emergency room at 21:56 on November 02 with a temperature of 37, pulse 87 respiratory rate 29, blood pressure 150/98, and O2 saturation 98 percent. NIH stroke scale was 3 Alcohol level was 52.1 (normal less than 10) CBC showed mild increased white count of 14.9 and he had some mild hyponatremia and low potassium. lipase was mildly elevated at 110. CT scan of the head was unremarkable. CT angiography of the head and neck were originally read as unremarkable with no significant vessel stenoses or anomalies, but today an addendum was put on the CT angiography stating that there was a right vertebral dissection starting at the origin of the artery at the base of the neck and extending up several centimeters. There was a thrombus present. I reviewed the CT films MRI of the brain showed right occipital and other posterior cerebral artery terr itory small infarcts with 2 right cerebellar hemispheric infarcts, consistent with an AICA territory. These multiple little strokes were small. I reviewed the MRI films Echocardiogram was unremarkable with no shunt. Repeat laboratory studies today revealed a normal CBC and Chem profile. Hemoglobin A1c is pending. Triglycerides were 230 and total cholesterol 225. Clinically he is doing much better and has a little bit improved vision to the left and has some dysesthesias only in his left foot and hand. His left hand may be a little clumsy but his gait is much better and he has no more vertigo, nausea, or vomiting. Allergies Allergy/AdvReac Type Severity Reaction Status Date / Time No Known Allergies Allergy Unverified 11/03/21 00:40 Home Medications Medication Instructions Recorded Confirmed Type ibuprofen 200 mg tablet 400 mg PO Q6H PRN 11/03/21 11/03/21 History Patient History Medical History (Updated 11/04/21 @ 09:25 by Jaylen Fowler MD) Migraine Migraine headache Surgical History (Updated 11/04/21 @ 09:18 by Jaylen Fowler MD) S/P tonsillectomy Family History Father , age 59 of lung cancer Lung cancer Heart disease Stroke Other Cancer Coronary heart disease Social History (Updated 11/04/21 @ 09:19 by Jaylen Fowler MD) Smoking Status: Current every day smoker Tobacco Type: Cigarettes Age Started Using Tobacco: 18; packs per day: 1.5; Cigarettes Per Day: 1-1.5 packs/day; Hx Alcohol Use: Yes Alcohol type: beer Alcohol Intake Frequency: 4 or More x per/Week Alcohol Intake Frequency Comment: 4-5 beers per day Hx Substance Use: No Preferred Language: Turkish Communication Ability: Effective Vault Keeper Required: No Beliefs That Will Affect Care: None Current Living Situation: Family current occupational status: employed current occupation: satellite and computer repair Feels Safe at Home: Yes Assistive Devices: Walker Review of Systems Constitutional: no fever, no fatigue and no weakness Eyes: + worsening vision; no diplopia and no eye pain Ear, Nose, Mouth, Throat: no ear pain, no tinnitus, no hearing loss, no dizziness, no snoring, no hoarseness and no dysphagia Respiratory: no cough and no dyspnea Cardiovascular: no chest pain, no palpitations and no lightheadedness Gastrointestinal: no abdominal pain, no nausea and no vomiting Musculoskeletal: no back pain, no neck pain, no radicular pain, no joint pain and no myalgia Integumentary: no rash and no lesions Neurologic: + numbness and + tremor(s); no gait abnormality, no localized weakness, no generalized weakness, no tingling, no abnormal movements, no headache(s), no abnormal speech, no confusion and no memory loss Psychiatric: no depression, no irritability, no anxiety, no difficulty concentrating, no confusion and no hallucinations Endocrine: no fatigue and no flushing Hematologic / Lymphatic: no easy bleeding and no easy bruising Allergy / Immunological: no urticaria and no problem reported Exam (Neuro) Physical Exam: The patient is right-handed. The patient is awake, alert, and attentive. Speech is normal without any aphasia or dysarthria. The patient can name objects, repeat phrases, and has normal spontaneous speech. Mentation and thought processes are intact, with orientation to person, place and time, and normal fund of knowledge. Attention and concentration are normal. Mood and affect are normal and appropriate. General appearance and grooming are normal. Short and long-term memory are intact. Pupils are 4 mm bilaterally and reactive to light. Extraocular eye muscles are intact without nystagmus. there was 1 beat or so of nystagmus with right gaze. Visual zapien seem to show some mild deficits. There are no deficits to sensation in the face in all 3 distributions of the fifth cranial nerve bilaterally. Corneal reflexes are positive bilaterally. Facial strength and symmetry was normal bilaterally. Hearing seems normal bilaterally. Palate moves well without asymmetry. There is normal sternocleidomastoid and trapezius (shoulder shrug) strength bilaterally. Tongue is midline with good strength bilaterally. Neck has a full range of motion without discomfort. There are no cervical bruits bilaterally. There are no cranial or ocular bruits. Heart is without murmur. There is a regular rhythm and rate. Cervical, thoracic, and lumbar spine are nontender to palpation. Gait is mildly wide based, with good arm swing, turns, and stance. Balance is normal eyes open or closed. With outstretched arms there is no drift. There are no resting tremors. the patient had mild but distinct action tremor bilaterally. There is no ataxia with finger to nose testing. There is good facility in the hands. No other abnormal involuntary movements are noted. Motor strength is 5/5 diffusely in the arms bilaterally including deltoids, biceps, triceps, brachioradialis, wrist flexors and extensors, potato chip frier, and intrinsic hand muscles. Motor strength is 5/5 diffusely in the legs bilaterally including hip flexors, quadriceps, hamstrings, gastrocnemius, tibialis anterior, tibialis posterior, and Peroneii muscles. Toe extensors are normal and there is good bulk in the extensor digitorum brevis muscles bilaterally. The limbs have good tone without rigidity or spasticity. There is no atrophy noted in the muscles. Muscle bulk is normal, there is no tenderness to palpation, no myotonia to percussion, and no fasciculations seen. Sensory examination is intact to touch and pin throughout all 4 limbs diffusely. Vibratory and position sense testing is normal bilaterally as well. There is normal sensation to temperature. Reflexes are 2/4 in the biceps, triceps, brachioradialis, quadriceps, and Achilles tendons bilaterally. There is no clonus bilaterally. Toes are downgoing with plantar stimulation bilaterally. Peripheral pulses are present and of normal quality distally in all 4 limbs. There is no peripheral edema noted in the limbs. Results & Data ([facility]) Vital Signs (Past 12 Hours) Vital Signs Temp Pulse Pulse Pulse Resp BP Pulse Ox 11/04/21 07:20 36.9 C 72 14 111/80 95 11/04/21 02:52 36.8 C 68 18 126/82 96 11/03/21 22:56 36.9 C 78 16 130/89 95 11/03/21 22:19 80 PG Care Time/CCT Total # of Minutes Spent Total Time Spent with Patient: Total time spent is greater than 50% in coordination of care (as documented) at patient's floor/unit and/or counseling patient: Coding Level of Care Code 08592 Inpt Consult Level 5 Diagnoses Acute CVA (cerebrovascular accident) I63.9 Left homonymous hemianopsia due to recent cerebral infarction I69.398; H53.462 Numbness and tingling in left arm R20.0; R20.2 Essential tremor G25.0 Hypertension I10 Vertebral artery dissection I77.74 Time Spent (min) 120 Comment add modifiers as able
[2021-11-04 09:36] LABS: Estimated Average Glucose 105 mg/dl; Hemoglobin A1C 5.3 % (4.5-5.6)
[2021-11-04] MEDS: CLOPIDOGREL BISULFATE 75 MG TAB PO SCH (11:29)
--- NOTE | 2021-11-04 14:53 | Consultation ---
Date of Consultation November 04, 2021 Assessment & Plan (1) Vertebral artery dissection: Pt with R vertebral artery dissection which appears to have occluded the artery. No known causes. Pt discussed with Dr Cedeño, who also reviewed the imaging. No indications for vascular surgical intervention at this time. Agree with neuro recommendation for antiplatelet therapy. Please call if needed. Explained to pt, who expresses understanding. History of Present Illness Reason for Consultation: R vertebral art dissection Attending Physician: Gordo Meeks MD History of Present Illness 41 yo m with hx of HTN and lyme disease, admitted with L sided numbness/tingling and dizziness and found to have occipital CVA, seen in consultation today for R vertebral artery dissection noted on CTA. Pt with some L sided numbness about 1 week prior, and developed same sx with dizziness and ataxia, and came to [facility] for eval. MRI brain demonstrates occipital CVA. Pt denies pain, JOAQUIN, confusion, difficulty speaking or swallowing, weakness, chest pain, SOB, abd pain, N/V, rest pain, claudication, other complaints. CTA demonstrates R vertebral art dissection with arterial occlusion . Allergies Allergy/AdvReac Type Severity Reaction Status Date / Time No Known Allergies Allergy Unverified 11/03/21 00:40 Home Medications Medication Instructions Recorded Confirmed Type ibuprofen 200 mg tablet 400 mg PO Q6H PRN 11/03/21 11/03/21 History Patient History Medical History Migraine Migraine headache Surgical History S/P tonsillectomy Family History Father , age 59 of lung cancer Lung cancer Heart disease Stroke Other Cancer Coronary heart disease Social History Smoking Status: Current every day smoker Tobacco Type: Cigarettes Age Started Using Tobacco: 18; packs per day: 1.5; Cigarettes Per Day: 1-1.5 packs/day; Hx Alcohol Use: Yes Alcohol type: beer Alcohol Intake Frequency: 4 or More x per/Week Alcohol Intake Frequency Comment: 4-5 beers per day Hx Substance Use: No Preferred Language: Bengali Communication Ability: Effective Retail Loss Prevention Investigator Required: No Beliefs That Will Affect Care: None Current Living Situation: Family current occupational status: employed current occupation: satellite and computer repair Feels Safe at Home: Yes Assistive Devices: Glasses Review of Systems 2 Review of Systems: All systems reviewed & are unremarkable except as noted in HPI & below Physical Exam Constitutional: WD/WN, vitals as above ENMT: Ears: no hearing impairment Neck: trachea midline Respiratory: normal respiratory effort, lungs clear to auscultation Auscultation: + diminished lung sounds Cardiovascular: Rate/Rhythm: regular rate and regular rhythm Vessels: femoral pulses present, posterior tibial pulses present, dorsalis pedis pulses present and radial pulses present; + abnormal peripheral pulses Extremities: normal capillary refill; no edema Gastrointestinal (Abdomen): Inspection/Auscultation: abdomen normal to inspection and normal bowel sounds Percussion/Palpation: abdomen soft; abdomen nontender Musculoskeletal: no cyanosis or clubbing, extremities motor strength 5/5 Skin: no rashes, warm and dry Neurologic: moves all extremities and awake; no focal motor deficits and not confused Psychiatric: A+Ox3, euthymic affect Results & Data ([facility]) Vital Signs (Past 12 Hours) Vital Signs Temp Pulse Pulse Resp BP Pulse Ox 11/04/21 11:13 36.5 C 76 15 135/91 96 11/04/21 07:20 36.9 C 72 14 111/80 95 11/04/21 02:52 36.8 C 68 18 126/82 96
--- NOTE | 2021-11-04 15:51 | Hospitalist Progress Note ---
Date of Service November 04, 2021 Assessment & Plan (1) Stroke-like symptoms: Plan: 41yo male with history of ongoing tobacco use, absent from routine medical care, presents with stroke-like symptoms. Began appx 1 week ago with a posterior headache associated with left sided paresthesias and left lateral visual field deficit. Symptoms seem to have progressed this evening with development of tinnitus, vertigo and ataxia. Patient smokes 1ppd. No prior CVA. No know h/o arrhythmia Acute nonhemorrhagic thromboembolic CVA related to right vertebral artery dissection Restricted diffusion, edema, and enhancement are seen in the right occipital lobe and cerebellum compatible with infarcts in the right posterior cerebral artery and AICA. There may also be a tiny infarct in the left occipital lobe. This represents right vertebral artery dissection and emboli. Now on dual antiplatelet therapy for 3 weeks and then aspirin alone going forward Case discussed with neurology and vascular surgery today, November 04 No history of A. fib, no irregular rhythm appreciated on monitor. Remains on telemetry. EKG NSR Discussed tobacco cessation, patient agreeable to this and expresses understanding of its effect on his stroke risk (2) History of Lyme disease: Plan: Patient reports history of a tick bite many years ago with development of several rashes. He states he completed a course of Doxycycline. (3) Tobacco abuse: Plan: 1 to 1.5 pack/day use Discussed impact on stroke risk, patient expresses understanding of this Agreeable to quit (4) Alcohol abuse: Plan: Reports 2-3, sometimes 4 beers per day. No history of tremors/withdrawal/DT Replete thiamine/folic acid Plan: Ppx -SCDs to bilateral LE Code - Full Dispo -eventual discharge to home, hopefully tomorrow, November 05 Admission and Anticipated Discharge Date Admission Date: November 03, 2021 Subjective Alert and oriented. No complaints. Acute CVA symptoms have nearly totally resolved. He is using a walker now to ambulate. There is evidence of right vertebral artery dissection on CTA. Vascular surgery consultation appreciated. No intervention needed at this time. Case discussed with neurology also. He is now on dual antiplatelet therapy for 3 weeks then aspirin after that going forward. Hopefully he can go home tomorrow, November 05. Review of Systems Review of Systems: Constitutional-no fever or chills ENT-no blurred vision, no double vision, no epistaxis, no sore throat Respiratory-no cough, no wheezing, no shortness of breath Cardiac-no palpitations, no chest pain, no syncope GI-no nausea, vomiting, diarrhea, melena, hematochezia -no urinary retention, no urinary incontinence, no dysuria, no hematuria Musculoskeletal-no joint pain, no muscle tenderness Skin-no bruising, no rashes, no pruritus Neuro-no isolated weakness, no paresthesia, no weakness. Imbalance has improved Psych-no depression, no anxiety Physical Exam Physical Exam: General-alert and oriented x3, no fevers, no chills HEENT-head atraumatic and normocephalic, TMs intact bilaterally, pupils equal and reactive to light, extraocular muscles intact Neck-no lymphadenopathy or thyromegaly, trachea midline Chest-clear to auscultation percussion. No rales wheezing or rhonchi Cardiac-regular rate and rhythm, normal S1 and S2, no murmurs Abdomen-normal bowel sounds, nontender, no hepatosplenomegaly Extremities-no cyanosis, clubbing, or edema Neuro-cranial nerves II through XII intact, motor and sensory function within normal limits, strength symmetrical 5/5, no focal deficits Psych-normal affect, normal mood Results & Data Results & Data ([facility]) Vital Signs (Past 12 Hours) Vital Signs Temp Pulse Pulse Resp BP Pulse Ox 11/04/21 15:04 36.7 C 70 20 126/81 97 11/04/21 11:13 36.5 C 76 15 135/91 96 11/04/21 07:20 36.9 C 72 14 111/80 95 Laboratory Results 11/04/21 07:55 11/04/21 07:55 PG Care Time/CCT Total # of Minutes Spent Total Time Spent with Patient: Total time spent is greater than 50% in coordination of care (as documented) at patient's floor/unit and/or counseling patient: Coding Level of Care Code 34357 Subseq Hosp Care Lvl 3 Diagnoses Stroke-like symptoms R29.90 History of Lyme disease Z86.19 Tobacco abuse Z72.0 Alcohol abuse F10.10
--- NOTE | 2021-11-04 22:08 | Electrocardiogram Report ---
Test Reason : Blood Pressure : / mmHG Vent. Rate : 087 BPM Atrial Rate : 087 BPM P-R Int : 156 ms QRS Dur : 088 ms QT Int : 386 ms P-R-T Axes : 067 -09 051 degrees QTc Int : 464 ms Normal sinus rhythm Possible Left atrial enlargement Borderline ECG When compared with ECG of 05-DEC-2013 09:38, No significant change was found Confirmed by Chalino Alfaro ([id number]) on 11/04/2021 10:08:24 PM Referred By: REFERRED SELF Confirmed By:Chalino Alfaro
[2021-11-05 06:21] LABS: Basophils # (auto) 0.05 K/uL (0-0.2); Basophils % (auto) 0.6 %; Eosinophils # (auto) 0.17 K/uL (0-0.5); Eosinophils % (auto) 2.1 %; Hematocrit (blood only) 50.1 % (42-52); Hemoglobin 16.9 g/dL (14.0-18.0); Immature Granulocytes # (auto) 0.02 K/uL (0.00-0.02); Immature Granulocytes % (auto) 0.2 %; Lymphocytes # (auto) 3.23 K/uL (1.2-3.4); Lymphocytes % (auto) 40.1 %; Mean Corpuscular Hemoglobin 32.6 pg (25-34); Mean Corpuscular Hgb Conc 33.7 g/dL (32-36); Mean Corpuscular Volume 96.7 fL (80-100); Mean Platelet Volume 9.8 fL (7.4-10.4); Monocytes # (auto) 0.92 K/uL (0.11-0.59); Monocytes % (auto) 11.4 %; Neutrophils # (auto) 3.66 K/uL (1.4-6.5); Neutrophils % (auto) 45.6 %; Platelet Count 352 K/uL (130-400); RDW Coefficient of Variation 12.9 % (11.5-14.5); RDW Standard Deviation 45.6 fL (36.4-46.3); Red Blood Count 5.18 M/uL (4.7-6.1); White Blood Count 8.05 K/uL (4.8-10.8)
[2021-11-05 06:52] LABS: BUN Creatinine Ratio 15.2 (10-20); Calcium 8.4 mg/dl (8.5-10.1); Creatinine Clr Calc Pharmacy 139.9 ml/min; Est GFR (African American) 127.5 ml/min; Potassium 3.6 mmol/L (3.5-5.1)
[2021-11-05] MEDS: ATORVASTATIN 40 MG TAB PO SCH (07:59)
[2021-11-05] MEDS: CLOPIDOGREL BISULFATE 75 MG TAB PO SCH (07:59)
[2021-11-05] MEDS: FOLIC ACID 1 MG TAB PO SCH (08:00)
[2021-11-05] MEDS: ASPIRIN 81 MG ECTAB PO SCH (08:00)
[2021-11-05] MEDS: THIAMINE HCL 100 MG in SYRINGE 9 ML IV SCH (08:01)
--- NOTE | 2021-11-05 10:23 | Neurology Progress Note ---
Date of Service November 05, 2021 Assessment & Plan (1) Acute CVA (cerebrovascular accident): (2) Vertebral artery dissection: (3) Left homonymous hemianopsia due to recent cerebral infarction: (4) Numbness and tingling in left arm: (5) Hypertension: (6) Essential tremor: Plan: This patient has suffered 2 separate stroke events (all small strokes in size). First, I believe, was early October (2 weeks ago) in the right posterior cerebral artery distribution, creating some left-sided dysesthesias and mild left homonymous hemianopsia. secondly, he had another stroke of a small nature in the right cerebellum on November 02, resulting in vertigo, abnormal gait, and tinnitus. He has improved from all the symptoms prior to admission but still has some left arm and leg dysesthesias and left sided vision problems. The etiology of these strokes is likely right vertebral artery dissection. This was noted on CT angiography and there is thrombus present. Patient has stroke risk factors for small vessel ischemic disease including heavy cigarette smoking of the longstanding nature, hypertension, and heavy alcohol use. echocardiogram showed no source of thrombus. He does not have diabetes and his hemoglobin A1c was 5.3. The patient has an essential tremor on exam which is likely long-standing and may be familial. Patient is a heavy alcohol user and he may have an early pancreatitis as noted by the elevated lipase. He does not have any abdominal symptoms, however. is not shown any signs of alcohol withdrawal. Recommendations: 1. Discontinue cigarette use. 2. Discontinue alcohol use. 3. Control blood pressure as you are doing, aiming for a mean arterial pressure of 95-100. 4. Continue atorvastatin 40 milligrams daily.. 5. Continue 75 mg clopidogrel and 81 mg aspirin daily for 3 weeks total, followed by 81 milligram aspirin tablet daily alone. 6. Increase activity as able, and physical an occupational therapy consult. 7. Consider B12, folate, and TSH. 8. This patient needs a primary care physician 9. His essential tremor is mild and does not need any specific treatment at this time. However, if treatment was considered, I would opt to initiate propranolol ER 60 milligrams a day to treat hypertension, tremor, and prevent migraines. 10. I can follow up as an outpatient in 2 weeks. Overall, I spent a total of 35 minutes with this case including review of records, direct evaluation patient at bedside, and discussion of the case with the patient and RN at bedside, and Dr. Meeks, including differential diagnosis and treatment options. Admission and Anticipated Discharge Date Admission Date: November 03, 2021 Subjective patient feels much better today compared to admission. He is walking with a walker to the bathroom and does not have any ataxia or dizziness. he believes that his vision difficulties to the left are little bit better, although he still has some problems. He has some dysesthesias and numbness in his left arm and leg. CBC and Chem profile today were largely unremarkable. Calcium is borderline at 8 0.4. Blood pressure is 113/75 and he is afebrile. Results & Data ([facility]) Vital Signs (Past 12 Hours) Vital Signs Temp Pulse Pulse Resp BP Pulse Ox 11/05/21 07:34 36.8 C 69 20 113/75 96 11/05/21 07:29 66 11/05/21 04:24 36.6 C 64 18 119/77 97 11/04/21 23:26 36.5 C 71 18 135/90 97 11/04/21 22:18 68 Exam (Neuro) Physical Exam: He is awake and alert with normal speech and mentation. Mood and affect are normal appropriate. Thought processes are intact with good memory to conversation. left visual field deficits are about the same as yesterday. There is no facial droop. Extraocular eye muscles are intact without nystagmus. Strength is symmetrical in the limbs being approximately 5/5. Coordination is normal without ataxia. He has some mild postural tremor. I watched him get up and use the walker a few steps without difficulty. PG Care Time/CCT Total # of Minutes Spent Total Time Spent with Patient: Total time spent is greater than 50% in coordination of care (as documented) at patient's floor/unit and/or counseling patient: Coding Level of Care Code 63523 Subseq Hosp Care Lvl 3 Diagnoses Acute CVA (cerebrovascular accident) I63.9 Vertebral artery dissection I77.74 Left homonymous hemianopsia due to recent cerebral infarction I69.398; H53.462 Numbness and tingling in left arm R20.0; R20.2 Hypertension I10 Essential tremor G25.0 Time Spent (min) 35
--- NOTE | 2021-11-05 10:56 | Discharge Summary ---
Date of Service November 05, 2021 Admission HPI Per Admitting Provider Terrance Hunter is a 41yo male with history of tobacco use presenting with dizziness. One week ago patient developed a migraine headache in the right posterior portion of his head as well as left sided numbness of the arm and leg and deficit of the left lateral visual field. Patient's headache resolved but the numbness/tingling and visual field deficit persist. Today he went grocery shopping then went out to a social club to have some drinks. He had two beers when he developed acute tinnitus and dizziness. He set his beer down and rested for appx 15-20 minutes to see if the dizziness would resolve. When it didn't he tried to walk to the bathroom. He became nauseated and had difficulty with balance and coordination. He had several episodes of non-bloody/non-bilious vomiting. Upon arrival he is afebrile, mildly elevated BP at 141/99, saturating well on RA. NIHSS = 3 Patient still complaining of dizziness worsened with movement. Was walked to the bathroom in the ER with significant ataxia No additional complaints at this time. Patient denies fever, chills, cough, chest pain, SOB. Denies abdominal pain, diarrhea. He is not vaccinated against Covid-19 He smokes 1ppd and drinks 2-3 beers/day. Denies history of EtOH withdrawal symptoms. ER Course: NSS x 2L, Zofran, Meclizine Principal Diagnosis embolic CVA, right vertebral artery dissection Discharge Data Allergies Allergy/AdvReac Type Severity Reaction Status Date / Time No Known Allergies Allergy Unverified 11/03/21 00:40 Consultations 11/03/21 06:38 Consult Neurology Routine 11/04/21 08:44 Consult Vascular Surgery Routine Ordered Studies 11/02/21 21:59 CT head/brain wo con Stat 11/02/21 22:03 CT angio head w con Stat CT angio neck with con Stat 11/03/21 06:38 MR brain wo/w con Routine Hospital Course (1) Stroke-like symptoms: 41yo male with history of ongoing tobacco use, absent from routine medical care, presents with stroke-like symptoms. Began appx 1 week ago with a posterior headache associated with left sided paresthesias and left lateral visual field deficit. Symptoms seem to have progressed this evening with development of tinnitus, vertigo and ataxia. Patient smokes 1ppd. No prior CVA. No know h/o arrhythmia Acute nonhemorrhagic thromboembolic CVA related to right vertebral artery dissection Restricted diffusion, edema, and enhancement are seen in the right occipital lobe and cerebellum compatible with infarcts in the right posterior cerebral artery and AICA. There may also be a tiny infarct in the left occipital lobe. This represents right vertebral artery dissection and emboli. Now on dual antiplatelet therapy for 3 weeks and then aspirin alone going forward . Continue statin therapy Case discussed with neurology and vascular surgery todayNovember 04 No history of A. fib, no irregular rhythm appreciated on monitor. Remains on telemetry. EKG NSR Discussed tobacco cessation, patient agreeable to this and expresses understanding of its effect on his stroke risk (2) History of Lyme disease: Patient reports history of a tick bite many years ago with development of several rashes. He states he completed a course of Doxycycline. (3) Tobacco abuse: 1 to 1.5 pack/day use Discussed impact on stroke risk, patient expresses understanding of this Agreeable to quit (4) Alcohol abuse: Reports 2-3, sometimes 4 beers per day. No history of tremors/withdrawal/DT Replete thiamine/folic acid Ppx -SCDs to bilateral LE Code - Full Dispo - discharge to home today, November 05 Total Time Total Time Spent Total Time Spent (In Minutes): 35 minutes Discharge Plan Discharge Items Patient Disposition: Home - Self-Care Reason For Visit: SUSPECTED CVA Discharge Diagnosis: Embolic posterior CVA, right vertebral artery dissection Activity: Resume your previous activity Non-emergency contact: Primary Care Provider Call non-emergency contact if: you have any medication questions and your symptoms worsen Follow-up/Referrals: PCP,NO [Primary Care Provider] - Diet: Heart Healthy Addtl Attending Provider Instructions: take medications as prescribed. Follow up with neurology ( Dr. Kailash Fowler ) in 2 weeks Pending Studies at Discharge: No Stand-Alone Forms: My [employer], Smoking Cessation Medications and DC Order Prescriptions: New aspirin [Aspirin Low Dose] 81 mg tablet,delayed release (DR/EC) 81 mg PO DAILY Qty: 30 RF: 0 clopidogrel [Plavix] 75 mg tablet 75 mg PO DAILY Qty: 30 RF: 0 atorvastatin 40 mg tablet 40 mg PO HS Qty: 30 RF: 0 Continued ibuprofen 200 mg Tablet 400 mg PO Q6H PRN (Reason: Pain) RF: 0 Discharge Orders: Discharge Order (Routine); Ordered 11/05/21 Ordered By: Gordo Meeks Admission Data Admit Date/Time: 11/03/21 01:24 Attending Provider: Gordo Meeks Admit Provider: Arely Lombardo Primary Care Provider: PCP,NO Other Providers: Joe Beaulieu ; Kerwin Cedeño Coding Level of Care Code D/C DAY MANAGEMENT >30 MINS Diagnoses Stroke-like symptoms R29.90 History of Lyme disease Z86.19 Tobacco abuse Z72.0 Alcohol abuse F10.10
== END 2021-11-05 13:03 | disposition home or self-care (01) | DRG 64 ==
LOC: ED 21:51 → EDINP 11-03 01:24 → SUATTDRO 11-03 01:24 → 2N 11-03 05:23